=== PATIENT | female | born 1950 | race Caucasian/White ===

== ENCOUNTER 2021-05-07 10:55 | Outpatient (CLI) | payer MEDICARE, SELFPAY | END 2021-05-07 10:56 | disposition home or self-care (01) | PROVIDERS: PCP Family Medicine; Visit Provider Family Medicine | DX: H91.92 Unspecified hearing loss, left ear (principal) | CPT/HCPCS: 99199 ==

== ENCOUNTER 2021-06-04 10:14 | Outpatient (CLI) | payer MEDICARE, SELFPAY | END 2021-06-04 10:15 | disposition home or self-care (01) | PROVIDERS: PCP Family Medicine; Visit Provider Family Medicine | DX: H91.92 Unspecified hearing loss, left ear (principal) | CPT/HCPCS: 92557; 92567 ==